=== PATIENT | male | born 1955 | race Caucasian/White ===

== ENCOUNTER → 2019-11-18 | Outpatient (CLI) | payer BC | END | disposition home or self-care (01) | LOC: LABWHC1 14:10 | PROVIDERS: ATTEND Urology | DX: R97.20 Elevated prostate specific antigen [PSA] (principal) | CPT/HCPCS: 36415; 84153 ==

== ENCOUNTER → 2020-05-18 | Outpatient (CLI) | payer BC | END | disposition home or self-care (01) | LOC: LABWHC1 12:53 | PROVIDERS: ATTEND Urology | DX: R97.20 Elevated prostate specific antigen [PSA] (principal) | CPT/HCPCS: 36415; 84153 ==

== ENCOUNTER → 2021-05-30 | Outpatient (CLI) | payer MEDICARE | END | disposition home or self-care (01) | LOC: LABWHC1 12:31 | PROVIDERS: ATTEND Urology | DX: R97.20 Elevated prostate specific antigen [PSA] (principal) | CPT/HCPCS: 36415; 84153 ==

== ENCOUNTER → 2021-12-06 | Outpatient (CLI) | payer MEDICARE ==
--- NOTE | 2021-12-06 15:11 | US ---
EXAMINATION TYPE: US thyroid st tissue head/neck DATE OF EXAM: 12/06/2021 COMPARISON: NONE CLINICAL HISTORY: E04.1 THYROID NODULE. Left thyroidectomy GLAND SIZE: Right Lobe: 5.7 x 1.6 x 1.9 cm Overall Parenchyma: heterogenous Isthmus Thickness: 0.3 cm NODULES RIGHT: # of nodules measured on right: 0 LEFT: surgically absent ISTHMUS: # of nodules measured in the isthmus: 0 Bilateral neck scanned, no evidence of lymphadenopathy. IMPRESSION: 1. No suspicious abnormality thyroid ultrasound. 2. No recurrent masses posterior right thyroid lobectomy
== END | disposition home or self-care (01) ==
LOC: RADUSWWP 14:41
PROVIDERS: ATTEND Otolaryngology
DX: E04.1 Nontoxic single thyroid nodule (principal)
CPT/HCPCS: 76536

== ENCOUNTER → 2023-06-14 | Outpatient (CLI) | payer MEDICARE ==
--- NOTE | 2023-06-15 21:31 | CT ---
EXAMINATION TYPE: CT abdomen pelvis wo con DATE OF EXAM: 06/14/2023 COMPARISON: INDICATION: calculus of kidney DLP: 1219 mGycm, Automated exposure control for dose reduction was used. CONTRAST: mL of . Study performed without Oral Contrast TECHNIQUE: Axial images were obtained from above the diaphragm to the pubic rami in the axial plane a t 5 mm thick sections. Reconstructed images are reviewed on the computer in the coronal plane. FINDINGS: Limited CT sections are obtained the lung bases. The lung bases are clear. CT ABDOMEN: Liver: Normal Spleen: Normal Pancreas: Normal Adrenal glands: The adrenal glands are normal. Gallbladder: Normal Kidneys: No masses are evident. No hydronephrosis is present. No cysts are present. There is a rim calcification measuring 1.7 cm on the lateral left mid kidney. There is a 0.6 cm nonobstructing soraida l stone at the right kidney. There is ar nonobstructing 0.7 cm calcification at the right ureteropelv ic junction. No hydronephrosis or hydroureter is evident. A nonobstructing punctate calcification makayla suring 0.4 cm is in the proximal left ureter. Series 3 image 73. Aorta: Vascular calcification is within the aorta. Inferior vena cava: Normal. CT PELVIS: Loops of bowel within the abdomen and pelvis are normal. Diverticulosis without acute diverticulitis is present predominantly within the sigmoid colon. There are loops of bowel which are incompletely distended or lack oral contrast limiting their evaluation. Appendix: Not identified. No dilated tubular structure or inflammatory changes of. Urinary bladder: Normal. Genitourinary structures: Prostate is prominent. Osseous structures: No suspicious lytic or sclerotic lesions. IMPRESSION: 1. Obstructing proximal ureteral stones bilaterally. No hydronephrosis or hydroureter is evident. 2. Nonobstructing right renal stone. 3. Rim calcification within the cortex of left kidney. Follow-up recommended.
== END | disposition home or self-care (01) ==
LOC: RADCTMAIN 10:43
PROVIDERS: ATTEND Urology
DX: N20.2 Calculus of kidney with calculus of ureter (principal); N28.89 Other specified disorders of kidney and ureter
CPT/HCPCS: 74176

== ENCOUNTER → 2023-06-24 | Outpatient (CLI) | payer MEDICARE | END | disposition home or self-care (01) | LOC: LABPAT 08:33 | PROVIDERS: ATTEND Urology | DX: Z01.812 Encounter for preprocedural laboratory examination (principal); N20.1 Calculus of ureter | CPT/HCPCS: 82365 ==

== ENCOUNTER 2023-08-23 21:45 | Emergency (ER) | payer MEDICARE ==
--- NOTE | 2023-08-23 22:20 | ED ---
Abdominal Pain HPI - General Chief Complaint: Abdominal Pain Stated Complaint: Abd pain Time Seen by Provider: 08/23/23 22:05 Source: patient, RN notes reviewed Mode of arrival: wheelchair Limitations: no limitations - History of Present Illness Initial Comments: 68-year-old male presenting with abdominal pain x 2 hours. Patient reports he was at home watching TV when he suddenly began to experience a pain in the lower abdomen, radiating around to the bilateral flanks. He states he went out to eat at a restaurant prior to this. Denies other symptoms such as nausea, vomiting, fever, diarrhea, constipation, urinary symptoms. He has never had this pain before. He does have a history of kidney stones but reports this feels different. He has a history of an appendectomy and umbilical hernia repair. Last bowel movement was today and was normal. Denies testicular pain or swelling. - Related Data Previous Rx's Medication Instructions Recorded Ketorolac [Toradol] 10 mg PO Q8HR #15 tab 08/24/23 Allergies Allergy/AdvReac Type Severity Reaction Status Date / Time No Known Allergies Allergy Verified 08/23/23 21:50 Review of Systems ROS Statement: Those systems with pertinent positive or pertinent negative responses have been documented in the HPI. ROS Other: All systems not noted in ROS Statement are negative. Past Medical History Past Medical History: Diabetes Mellitus, Hypertension, Thyroid Disorder Additional Past Medical History / Comment(s): chronic back pain History of Any Multi-Drug Resistant Organisms: None Reported Past Surgical History: Appendectomy, Hernia Repair Additional Past Surgical History / Comment(s): thyroidectomy Past Psychological History: No Psychological Hx Reported Smoking Status: Never smoker Past Alcohol Use History: Occasional Past Drug Use History: None Reported General Exam Limitations: no limitations General appearance: alert, in no apparent distress Head exam: Present: atraumatic, normocephalic, normal inspection Eye exam: Present: normal appearance, PERRL, EOMI. Absent: scleral icterus, conjunctival injection, periorbital swelling ENT exam: Present: normal exam, mucous membranes moist Respiratory exam: Present: normal lung sounds bilaterally. Absent: respiratory distress, wheezes, rales, rhonchi, stridor Cardiovascular Exam: Present: regular rate, normal rhythm, normal heart sounds. Absent: systolic murmur, diastolic murmur, rubs, gallop, clicks GI/Abdominal exam: Present: soft, normal bowel sounds. Absent: distended, tenderness, guarding, rebound, rigid Extremities exam: Present: normal inspection, full ROM, normal capillary refill. Absent: tenderness, pedal edema, joint swelling, calf tenderness Back exam: Present: normal inspection. Absent: CVA tenderness (R), CVA tenderness (L) Neurological exam: Present: alert, oriented X3 Psychiatric exam: Present: normal affect, normal mood Skin exam: Present: warm, dry, intact, normal color. Absent: rash Course Vital Signs 08/23/23 08/24/23 21:46 00:37 Temperature 97.3 F L Pulse Rate 76 74 Respiratory 20 16 Rate Blood Pressure 150/89 139/89 O2 Sat by Pulse 90 L 94 L Oximetry Medical Decision Making - Medical Decision Making Was pt. sent in by a medical professional or institution (EBONY Noe, MOLD MAINTENANCE TECHNICIAN, urgent care, hospital, or fdc...) When possible be specific @ -[No] Did you speak to anyone other than the patient for history (EMS, parent, family, police, friend...)? What history was obtained from this source @ -Patient's supplemented history Did you review nursing and triage notes (agree or disagree)? Why? @ -[I reviewed and agree with nursing and triage notes] Were old charts reviewed (outside hosp., previous admission, EMS record, old EKG, old radiological studies, urgent care reports/EKG's, fdc records)? Report findings @ -[No old charts were reviewed] Differential Diagnosis (chest pain, altered mental status, abdominal pain women, abdominal pain men, vaginal bleeding, weakness, fever, dyspnea, syncope, headache, dizziness, GI bleed, back pain, seizure, CVA, palpatations, mental health, musculoskeletal)? @ -Differential Abdominal Pain Men: Appendicitis, cholecystitis, diverticulosis, ischemic bowel, pancreatitis, hepatitis, UTI, gastroenteritis, AAA, incarcerated hernia, bowel obstruction, constipation, inflammatory bowel, hepatitis, peptic ulcer disease, splenic infarction, perforated viscus, testicular torsion, this is not meant to be an all-inclusive list EKG interpreted by me (3pts min.). @ -None X-rays interpreted by me (1pt min.). @ -[None done] CT interpreted by me (1pt min.). @ -CT revealed 9 mm obstructing stone in proximal half of right ureter about 9 cm from renal pelvis causing moderate hydroureter, hydronephrosis, and perinephric stranding, 2 adjacent stones at right pelvic ureteral junction, up t o 8 mm, 17 mm exophytic cystic lesion with thick rim calcification lateral left kidney, Bosniak type II, unchanged U/S interpreted by me (1pt. min.). @ -[None done] What testing was considered but not performed or refused? (CT, X-rays, U/S, labs)? Why? @ -[None] What meds were considered but not given or refused? Why? @ -[None] Did you discuss the management of the patient with other professionals (professionals i.e. , PA, MOLD MAINTENANCE TECHNICIAN, lab, RT, psych nurse, addiction social worker, dental amalgam processor, teacher, radiological defense officer, manager case management)? Give summary @ -I spoke with Dr. Luna who is the on-call urologist regarding this case, and he recommends patient is discharged with outpatient follow-up in office on Saturday as patient is afebrile and pain is controlled. Was smoking cessation discussed for >3mins.? @ -[No] Was critical care preformed (if so, how long)? @ -[No] Were there social determinants of health that impacted care today? How? (Homelessness, low income, unemployed, alcoholism, drug addiction, transportat ion, low edu. Level, literacy, decrease access to med. care, retirement, rehab)? @ -[No] Was there de-escalation of care discussed even if they declined (Discuss DNR or withdrawal of care, Hospice)? DNR status @ -[No] What co-morbidities impacted this encounter? (DM, HTN, Smoking, COPD, CAD, Cancer, CVA, ARF, Chemo, Hep., AIDS, mental health diagnosis, sleep apnea, morbid obesity)? @ -[None] Was patient admitted / discharged? Hospital course, mention meds given and route, prescriptions, significant lab abnormalities, going to OR and other pertinent info. @ -Patient was seen and evaluated for sudden onset abdominal pain prior to arrival. Patient has history of kidney stones. Vital signs are unremarkable. Patient is nontender to palpation of abdomen. Patient is given IV fluids and Toradol. Labs including CBC, CMP, lipase, lactic acid are remarkable for lactic of 2.5. White blood cell count is within normal limits. Urine reveals large blood, 2+ glucose, 1+ protein. CT revealed 9 mm obstructing stone in proximal half of right ureter about 9 cm from renal pelvis causing moderate hydroureter, hydronephrosis, and perinephric stranding with 2 adjacent stones at right pelvic ureteral junction, up to 8 mm. Upon reevaluation, patient states pain is well- controlled. I spoke with Dr. Luna who is the on-call urologist regarding this case, and he recommends patient is discharged with outpatient follow-up in office on Saturday, as patient is afebrile and pain is controlled. Patient and are agreeable to plan. Patient is currently already on Flomax for prostate hypertrophy, advised to continue this. Prescribed Toradol p.o. to pharmacy. Instructed to follow-up with urology on Saturday. Supportive care discussed. Strict return parameters discussed and patient shows understanding and agrees to plan. Case discussed with my attending Dr. Riley. Patient discharged in stable condition. Undiagnosed new problem with uncertain prognosis? @ -[No] Drug Therapy requiring intensive monitoring for toxicity (Heparin, Nitro, Insulin, Cardizem)? @ -[No] Were any procedures done? @ -[No] Diagnosis/symptom? @ -Right nephrolithiasis Acute, or Chronic, or Acute on Chronic? @ -Acute Uncomplicated (without systemic symptoms) or Complicated (systemic symptoms)? @ -Uncomplicated Side effects of treatment? @ -[No] Exacerbation, Progression, or Severe Exacerbation? @ -[No] Poses a threat to life or bodily function? How? (Chest pain, [place], [place], pneumonia, PE, COPD, DKA, ARF, appy, cholecystitis, CVA, Diverticulitis, Homicidal, Suicidal, threat to staff... and all critical care pts) @ -Unlikely - Lab Data Result diagrams: 08/23/23 22:04 08/23/23 22:04 Lab Results 08/23/23 08/23/23 08/23/23 Range/Units 22:04 22:04 22:04 WBC 10.3 (3.8-10.6) k/uL RBC 4.78 (4.30-5.90) m/uL Hgb 14.2 (13.0-17.5) gm/dL Hct 43.4 (39.0-53.0) % MCV 90.8 (80.0-100.0) fL MCH 29.6 (25.0-35.0) pg MCHC 32.6 (31.0-37.0) g/dL RDW 13.7 (11.5-15.5) % Plt Count 190 (150-450) k/uL MPV 8.5 Neutrophils % 73 % Lymphocytes % 17 % Monocytes % 7 % Eosinophils % 1 % Basophils % 0 % Neutrophils # 7.5 (1.3-7.7) k/uL Lymphocytes # 1.8 (1.0-4.8) k/uL Monocytes # 0.8 (0-1.0) k/uL Eosinophils # 0.1 (0-0.7) k/uL Basophils # 0.0 (0-0.2) k/uL Sodium 135 L (137-145) mmol/L Potassium 3.6 (3.5-5.1) mmol/L Chloride 100 (98-107) mmol/L Carbon Dioxide 24 (22-30) mmol/L Anion Gap 11 mmol/L BUN 32 H (9-20) mg/dL Creatinine 1.31 H (0.66-1.25) mg/dL Est GFR (CKD-EPI)AfAm 65 (>60 ml/min/1.73 sqM) Est GFR (CKD-EPI)NonAf 56 (>60 ml/min/1.73 sqM) Glucose 202 H (74-99) mg/dL Lactic Ac Sepsis Rflx Plasma Lactic Acid Yrn 2.5 H* (0.7-2.0) mmol/L Calcium 9.7 (8.4-10.2) mg/dL Total Bilirubin 0.4 (0.2-1.3) mg/dL AST 33 (17-59) U/L ALT 26 (4-49) U/L Alkaline Phosphatase 48 (38-126) U/L Total Protein 6.7 (6.3-8.2) g/dL Albumin 4.3 (3.5-5.0) g/dL Lipase 193 (23-300) U/L Urine Color Urine Appearance (Clear) Urine pH (5.0-8.0) Ur Specific [place] (1.001-1.035) Urine Protein (Negative) Urine Glucose (UA) (Negative) Urine Ketones (Negative) Urine Blood (Negative) Urine Nitrite (Negative) Urine Bilirubin (Negative) Urine Urobilinogen (<2.0) mg/dL Ur Leukocyte Esterase (Negative) Urine RBC (0-5) /hpf Urine WBC (0-5) /hpf Urine Bacteria (None) /hpf Urine Mucus (None) /hpf Urine Yeast (Budding) (None) /hpf 08/23/23 08/23/23 Range/Units 22:36 23:43 WBC (3.8-10.6) k/uL RBC (4.30-5.90) m/uL Hgb (13.0-17.5) gm/dL Hct (39.0-53.0) % MCV (80.0-100.0) fL MCH (25.0-35.0) pg MCHC (31.0-37.0) g/dL RDW (11.5-15.5) % Plt Count (150-450) k/uL MPV Neutrophils % % Lymphocytes % % Monocytes % % Eosinophils % % Basophils % % Neutrophils # (1.3-7.7) k/uL Lymphocytes # (1.0-4.8) k/uL Monocytes # (0-1.0) k/uL Eosinophils # (0-0.7) k/uL Basophils # (0-0.2) k/uL Sodium (137-145) mmol/L Potassium (3.5-5.1) mmol/L Chloride (98-107) mmol/L Carbon Dioxide (22-30) mmol/L Anion Gap mmol/L BUN (9-20) mg/dL Creatinine (0.66-1.25) mg/dL Est GFR (CKD-EPI)AfAm (>60 ml/min/1.73 sqM) Est GFR (CKD-EPI)NonAf (>60 ml/min/1.73 sqM) Glucose (74-99) mg/dL Lactic Ac Sepsis Rflx Y Plasma Lactic Acid Yrn (0.7-2.0) mmol/L Calcium (8.4-10.2) mg/dL Total Bilirubin (0.2-1.3) mg/dL AST (17-59) U/L ALT (4-49) U/L Alkaline Phosphatase (38-126) U/L Total Protein (6.3-8.2) g/dL Albumin (3.5-5.0) g/dL Lipase (23-300) U/L Urine Color Yellow Urine Appearance Cloudy (Clear) Urine pH 5.5 (5.0-8.0) Ur Specific [place] 1.022 (1.001-1.035) Urine Protein 1+ H (Negative) Urine Glucose (UA) 2+ H (Negative) Urine Ketones Negative (Negative) Urine Blood Large H (Negative) Urine Nitrite Negative (Negative) Urine Bilirubin Negative (Negative) Urine Urobilinogen <2.0 (<2.0) mg/dL Ur Leukocyte Esterase Negative (Negative) Urine RBC 174 H (0-5) /hpf Urine WBC 4 (0-5) /hpf Urine Bacteria Rare H (None) /hpf Urine Mucus Rare H (None) /hpf Urine Yeast (Budding) Occasional H (None) /hpf Disposition Clinical Impression: Right nephrolithiasis Disposition: HOME SELF-CARE Condition: Stable Instructions (If sedation given, give patient instructions): Kidney Stones (ED) Additional Instructions: Please follow-up with urology on Saturday. Take Toradol as needed for pain. Continue Flomax. Please return to the Emergency Department if symptoms worsen or any other concerns. Prescriptions: Ketorolac [Toradol] 10 mg PO Q8HR #15 tab Is patient prescribed a controlled substance at d/c from ED?: No Referrals: Norberto Cassidy MD [Primary Care Provider] - 1-2 days Kieran Luna MD [STAFF PHYSICIAN] - 1-2 days Time of Disposition: 01:52
[2023-08-23] MEDS: SODIUM CHLORIDE 0.9% 1,000 ML IV STA (22:27)
[2023-08-23] MEDS: KETOROLAC 15 MG/ML 1 ML VIAL IVP STA (22:27)
[2023-08-23 22:53] LABS: Basophils % (A) 0 %; Eosinophils # (A) 0.1 k/uL (0-0.7); Eosinophils % (A) 1 %; HCT 43.4 % (39.0-53.0); HGB 14.2 gm/dL (13.0-17.5); Lymphocytes # (A) 1.8 k/uL (1.0-4.8); Lymphocytes % (A) 17 %; MCH 29.6 pg (25.0-35.0); MCHC 32.6 g/dL (31.0-37.0); MCV 90.8 fL (80.0-100.0); Mean Platelet Volume 8.5; Monocytes # (A) 0.8 k/uL (0-1.0); Monocytes % (A) 7 %; Neutrophils # (A) 7.5 k/uL (1.3-7.7); Neutrophils % (A) 73 %; Platelet Count 190 k/uL (150-450); RBC 4.78 m/uL (4.30-5.90); RDW 13.7 % (11.5-15.5); WBC 10.3 k/uL (3.8-10.6)
[2023-08-23 22:59] LABS: Appearance,Urine Cloudy (Clear); Bacteria,Urine Rare /hpf; Bilirubin,Urine Negative (Negative); Blood,Urine Large (Negative); Budding Yeast,Urine Occasional /hpf; Color,Urine Yellow; Glucose,Urine (UA) 2+ (Negative); Ketones,Urine Negative (Negative); Leukocyte Esterase,Urine Negative (Negative); Mucus,Urine Rare /hpf; Nitrite,Urine Negative (Negative); PH, Urine 5.5 (5.0-8.0); Protein,Urine 1+ (Negative); RBC,Urine 174 /hpf (0-5); Specific Gravity,Urine 1.022 (1.001-1.035); Urobilinogen,Urine <2.0 mg/dL (<2.0); WBC,Urine 4 /hpf (0-5)
[2023-08-23 23:06] LABS: ALT 26 U/L (4-49); AST 33 U/L (17-59); African American GFR (CKD) 65 (>60 ml/min/1.73 sqM); Albumin 4.3 g/dL (3.5-5.0); Alkaline Phosphatase 48 U/L (38-126); Anion Gap 11 mmol/L; Blood Urea Nitrogen 32 mg/dL (9-20); Calcium 9.7 mg/dL (8.4-10.2); Carbon Dioxide 24 mmol/L (22-30); Chloride 100 mmol/L (98-107); Glucose 202 mg/dL (74-99); Lipase 193 U/L (23-300); Non-African American GFR(CKD) 56 (>60 ml/min/1.73 sqM); Potassium 3.6 mmol/L (3.5-5.1); Sodium 135 mmol/L (137-145); Total Bilirubin 0.4 mg/dL (0.2-1.3); Total Protein 6.7 g/dL (6.3-8.2)
[2023-08-24] MEDS: SODIUM CHLORIDE 0.9% 1,000 ML IV STA (00:36)
[2023-08-24 00:39] VITALS: RESP 16
--- NOTE | 2023-08-24 00:54 | CT ---
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 CTDI is 26.9 mGy and DLP is 1469.1 mGy-cm. This CT exam was performed using one or more of the following dose reduction techniques: automated exposure control, adjustment of the mA and/or kV according to patient size, and/or use of iterative reconstruction technique. Coronal and sagittal reformatted images were created and reviewed. 498 images COMPARISON: 06-14-23 FINDINGS: Lung bases: Unremarkable. No mass. No consolidation. ABDOMEN: Liver: Unremarkable. No mass. Gallbladder and bile ducts: Unremarkable. No calcified stones. No ductal dilation. Pancreas: Unremarkable. No mass. No ductal dilation. Spleen: Unremarkable. No splenomegaly. Adrenals: Unremarkable. No mass. Kidneys and ureters: 9 mm obstructing stone in proximal half of the right ureter about 9 cm from the renal pelvis causes moderate hydroureter, hydronephrosis and perinephric stranding. 2 adjacent stones at the right pelvic ureteral junction, measuring up to 8 mm. 17 mm exophytic cystic lesion with thick rim calcification lateral left kidney, Bosniak type II F, unchanged. Stomach and bowel: Moderate colonic diverticulosis. No obstruction. No mucosal thickening. PELVIS: Appendix: No findings to suggest acute appendicitis. Bladder: Unremarkable. No mass. Reproductive: Unremarkable as visualized. ABDOMEN and PELVIS: Intraperitoneal space: Unremarkable. No free air. No significant fluid collection. Bones/joints: 1 cm anterolisthesis of L5 on S1 with associated bilateral pars defect of L5, unchanged. Soft tissues: Small fat-containing umbilical hernia. Vasculature: Unremarkable. No abdominal aortic aneurysm. Lymph nodes: Unremarkable. No enlarged lymph nodes. IMPRESSION: 1. 9 mm obstructing stone in proximal half of the right ureter about 9 cm from the renal pelvis causes moderate hydroureter, hydronephrosis and perinephric stranding. 2. 2 adjacent stones at the right pelvic ureteral junction, measuring up to 8 mm. 3. 17 mm exophytic cystic lesion with thick rim calcification lateral left kidney, Bosniak type II F, unchanged.
[2023-08-24 02:06] VITALS: BP 141/93; PULSE 79; TEMP 98.7
== END 2023-08-24 02:58 | disposition home or self-care (01) ==
LOC: EC 21:45
DX: N13.2 Hydronephrosis with renal and ureteral calculous obstruction (principal)
CPT/HCPCS: 36415; 80053; 83605; 83690; 85025; 81001; 74177; 99284; 96374; 96361; J1885; Q9967; 96375

== ENCOUNTER → 2023-09-03 | Outpatient (CLI) | payer MEDICARE ==
[2023-09-03 18:27] LABS: Basophils # (A) 0.05 X 10*3/uL (0.00-0.10); Basophils % (A) 0.7 %; Eosinophils % (A) 2.7 %; HCT 43.4 % (37.2-50.0); HGB 14.1 g/dL (12.0-17.0); Lymphocytes % (A) 27.4 %; MCH 29.1 pg (27.0-32.0); MCHC 32.5 g/dL (32.0-37.0); MCV 89.5 FL (80.0-97.0); Monocytes # (A) 0.75 X 10*3/uL (0.20-1.00); Monocytes % (A) 10.3 %; NRBC Per 100 WBC 0 X 10*3/uL (0.00-0.01); Neutrophils # (A) 4.28 X 10*3/uL (1.80-7.70); Neutrophils % (A) 58.5 %; Platelet Count 211 X 10*3/uL (140-440); RBC 4.85 X 10*6/uL (4.10-5.60); RDW 13.5 % (11.5-14.5); WBC 7.31 X 10*3/uL (4.50-10.00)
[2023-09-03 18:28] LABS: Appearance,Urine Clear (Clear); Bilirubin,Urine Negative (Negative); Blood,Urine Moderate (Negative); Color,Urine Yellow (Yellow); Ketones,Urine Negative (Negative); Nitrite,Urine Negative (Negative); Specific Gravity,Urine 1.017 (1.001-1.030); Urobilinogen,Urine 0.2 E.U./DL
[2023-09-03 18:43] LABS: Bacteria,Urine None Seen (None Seen)
[2023-09-03 18:48] LABS: Blood Urea Nitrogen 18.9 mg/dL (9.0-27.0); Calcium 9.6 mg/dL (8.7-10.3); Carbon Dioxide 28.6 mmol/L (21.6-31.8); Chloride 99 mmol/L (96-109); Glucose 147 mg/dL (70-110); Sodium 137 mmol/L (135-145)
== END | disposition home or self-care (01) ==
LOC: LABPAT 11:39
PROVIDERS: ATTEND Urology
DX: Z01.812 Encounter for preprocedural laboratory examination (principal); N20.1 Calculus of ureter
CPT/HCPCS: 80048; 81001; 85025; 87086

== ENCOUNTER 2023-09-11 06:00 | Day surgery (SDC) | payer MEDICARE ==
[2023-09-10 09:26] VITALS: BMI 30.4
--- NOTE | 2023-09-10 13:03 | P.GSHP ---
History of Present Illness H&P Date: 09/10/23 68 yo male with stones comes for ureteroscopic removal to two right ureteral stones, 9mm proximal ureteral stone and 6 mm rid mid ureteral stone. the risks complications and alternatives have been discussed. - Constitutional Constitutional: Denies chills, Denies fever - EENT Eyes: denies blurred vision, denies pain Ears, nose, mouth and throat: Denies headache, Denies sore throat - Cardiovascular Cardiovascular: Denies chest pain, Denies shortness of breath - Respiratory Respiratory: Denies cough, Denies 7 - Gastrointestinal Gastrointestinal: Denies abdominal pain, Denies diarrhea, Denies nausea, Denies vomiting - Genitourinary (Female) Genitourinary: Denies dysuria, Denies hematuria - Genitourinary (Male) Genitourinary: Denies dysuria, Denies hematuria - Musculoskeletal Musculoskeletal: Denies myalgias - Integumentary Integumentary: Denies pruritus, Denies rash - Neurological Neurological: Denies numbness, Denies weakness - Psychiatric Psychiatric: Denies anxiety, Denies depression - Endocrine Endocrine: Denies fatigue, Denies weight change Past Medical History Past Medical History: Diabetes Mellitus, Hyperlipidemia, Hypertension, Thyroid Disorder Additional Past Medical History / Comment(s): rt kidney stones,chronic back pain History of Any Multi-Drug Resistant Organisms: None Reported Past Surgical History: Appendectomy, Hernia Repair Additional Past Surgical History / Comment(s): partial thyroidectomy,left inguinal hernia repair Past Anesthesia/Blood Transfusion Reactions: No Reported Reaction Additional Past Anesthesia/Blood Transfusion Reaction / Comment(s): no hx blood transfusion Smoking Status: Never smoker - Past Family History Mother Family Medical History: No Reported History Medications and Allergies Home Medications Medication Instructions Recorded Confirmed Type Aspirin 81 mg PO DAILY 09/10/23 09/10/23 History Celecoxib [CeleBREX] 200 mg PO BID 09/10/23 09/10/23 History Citalopram Hydrobromide 20 mg PO QAM 09/10/23 09/10/23 History [Citalopram HBr] Losartan Potassium 100 mg PO QAM 09/10/23 09/10/23 History [place]-3/Dha/Epa/Fish Oil [Fish Oil 1 each PO DAILY 09/10/23 09/10/23 History 1,000 mg Softgel] Omeprazole [PriLOSEC] 20 mg PO AC-BRKFST 09/10/23 09/10/23 History Simvastatin [Zocor] 80 mg PO HS 09/10/23 09/10/23 History Tamsulosin HCl [Flomax] 0.4 mg PO HS 09/10/23 09/10/23 History amLODIPine [Norvasc] 5 mg PO QAM 09/10/23 09/10/23 History glipiZIDE XL [Glucotrol Xl] 5 mg PO DAILY 09/10/23 09/10/23 History hydroCHLOROthiazide 25 mg PO DAILY 09/10/23 09/10/23 History metFORMIN HCL 1,500 mg PO W/SUPPER 09/10/23 09/10/23 History Allergies Allergy/AdvReac Type Severity Reaction Status Date / Time No Known Allergies Allergy Verified 09/10/23 09:18 Surgical - Exam - General well developed, well nourished, no distress - Eyes normal ocular movement, no icteric - ENT no hearing loss, no congestion - Neck no masses, trachea midline - Respiratory normal respiratory effort, clear to auscultation - Abdomen Abdomen: soft, non tender, no guarding, no rigid, no rebound - Integumentary no rash, no abnormal pigmentation - Neurologic no disoriented, no combative - Psychiatric oriented to time, oriented to person, oriented to place, speech is normal, memory intact Results - Imaging Abdominal x-ray: report reviewed, image reviewed CT scan - abdomen: report reviewed, image reviewed CT scan - pelvis: report reviewed, image reviewed Assessment and Plan Assessment: Impression: right ureteral stones[2]. Plan: cysto right ureterscopy with laser lithotripsy.
[~2023-09-11 06:00] MED LIST: LIDOCAINE 1% (10MG/ML) FOR IV START INTRADERMA PRN
--- NOTE | 2023-09-11 06:22 | XR ---
EXAMINATION TYPE: XR KUB DATE OF EXAM: 09/11/2023 6:12 AM CLINICAL HISTORY: Kidney stones TECHNIQUE: Single supine KUB image of the abdomen is obtained obtained. COMPARISON: CT abdomen and pelvis August 23, 2023 FINDINGS: Roughly 10 mm calculus in at the level of left UPJ is redemonstrated. Suspected additional 9 mm calculus at right L5 level redemonstrated less well seen on plain films versus CT. Persistent 2. 3 cm calcified cyst in the left kidney is noted. Overall nonobstructive bowel gas pattern. Visualized osseous structures are intact. IMPRESSION: As above.
[2023-09-11 06:58] LABS: Glucose,Whole Blood 157 mg/dL (70-110)
[2023-09-11] MEDS: LACTATED RINGERS 1,000 ML IV SCH (06:58)
[2023-09-11] MEDS: IV FLUID CONTINUATION 1,000 ML IV ONE ×2 (06:59→07:22)
[2023-09-11] MEDS ORDERED: HYDROmorphone 0.5 MG/0.5 ML SYRINGE IVP PRN (07:00)
[2023-09-11] MEDS: ONDANSETRON 4 MG/2 ML VIAL IVP ONE (07:04)
[2023-09-11] MEDS: DEXAMETHASONE SOD PHOSPHATE 4 MG/ML 1 ML VIAL IVP STA (07:07)
[2023-09-11] MEDS ORDERED: KETOROLAC 15 MG/ML 1 ML VIAL ONE (07:20)
[2023-09-11] MEDS ORDERED: MIDAZOLAM 2 MG/2 ML VIAL ONE (07:20)
[2023-09-11] MEDS ORDERED: PROPOFOL 10 MG/ML 20 ML VIAL IV ONE (07:20)
[2023-09-11] MEDS ORDERED: LIDOCAINE 1% INJ 10MG/ML (20 ML MDV) ONE (07:20)
[2023-09-11] MEDS ORDERED: NEOSTIGMINE 1 MG/ML 10 ML VIAL ONE (07:20)
[2023-09-11] MEDS ORDERED: ROCURONIUM 10 MG/ML (5 ML VIAL) IV ONE (07:20)
[2023-09-11] MEDS ORDERED: GLYCOPYRROLATE 0.2 MG/ML 2 ML VIAL ONE (07:20)
[2023-09-11] MEDS ORDERED: ePHEDrine 50 MG/ML 1 ML VIAL ONE (07:20)
[2023-09-11] MEDS ORDERED: fentaNYL (PF) 50 MCG/ML 2 ML AMP ONE (07:20)
[2023-09-11] MEDS ORDERED: SUCCINYLCHOLINE CHLORIDE 200 MG/10 ML VIAL IV ONE (07:20)
[2023-09-11] MEDS: IOPAMIDOL-370 100ML BTL MISCELLANE ONE (07:59)
--- NOTE | 2023-09-11 08:49 | P.OP ---
Date of Procedure: 09/11/23 Preoperative Diagnosis: right ureteral calculi Postoperative Diagnosis: same Procedure(s) Performed: cystoscopy, right ureteroscopy with laser lithotripsy, placement of 6 x 26 double-J catheter Anesthesia: ASHLEY Surgeon: Bob Reynoso Estimated Blood Loss (ml): 10 Pathology: none sent Condition: stable Disposition: PACU Indications for Procedure: the patient is 68. He has a 9 mm midureteral stone and a 9 mm proximal ureteral stone on the right side causing obstruction and discomfort. He comes for right ureteroscopy and laser lithotripsy. Risks and complications alternatives have been discussed Description of Procedure: patient brought to the operating suite. Given a general anesthetic. Placed lithotomy position with a sterile prep and drape. Cystoscopy Foroblique lens and 22-Ukrainian sheath identifies a normal anterior urethra. The prostatic urethra is minimally obstructing. The bladder rincon inspected and is unremarkable. The right ureteral orifice is identified and intubated with an 035 wire. Its passed up to the first stone which is quite impacted and eventually I'm able to manipulate the wire by the first stone. I cannot get it by the second stone. I passed an 86-14-Zhksla ureteral reentry sheath up the right ureter. The inner sheath is removed. I passed the flexible ureteroscope up to the stone. Very edematous and difficult to see. Fortunately I'm able to pass a wire by the second stone up into the kidney. I then elected to pass a ureteral dilating balloon dilated the ureter the level of the proximal right ureteral stone. I then reintroduced the ureteral sheath up the right ureter to the stone. The inner sheath is removed. I then pass a flexible ureteroscope to the stone. It is quite edematous. I'm able to partially break it such that the scope advanced by the stone. I go to the more proximal stone unable to break that into tiny pieces and passed up into the renal pelvis. I pulled back to the more distal stone and it again is in very edematous tissue and difficult to see but I'm able to break it down some more. Due to the edema and small amount of bleeding it is difficult to see and I'm uncertain as to whether all the stone is gone I elected terminate the procedure due to the edema and bleeding. I move the ureteroscope and pass a wire back onto the cystoscope. Over the wire then pass a 6 x 26 double-J catheter that coils in the renal pelvis and in the bladder the bladder is drained the patient is awakened and returned recovery room good condition The patient has had his obstruction relieved. Most of the stone has been removed. Stent has been placed. I will do a second look in a couple weeks after the edema has settled down and remove any remaining stone and make sure that the obstruction has cleared in the right ureter.
[2023-09-11 09:00] VITALS: TEMP 96.8
--- NOTE | 2023-09-11 09:11 | FL ---
EXAMINATION TYPE: FL guidance operating room Intraoperative/procedural fluoroscopic services were pro vided. Total fluoroscopy time is 3 minutes 5 seconds with a total of 2 submitted images to PACS. Plea se see the operative/procedural note for further details. DAP: 53.353 Gycm2
[2023-09-11 09:20] VITALS: RESP 16
[2023-09-11 09:24] LABS: Glucose,Whole Blood 169 mg/dL (70-110)
[2023-09-11 09:46] VITALS: PULSE 75
[2023-09-11 10:02] VITALS: BP 119/74
== END 2023-09-11 10:47 | disposition home or self-care (01) ==
LOC: OR 06:00
PROVIDERS: ATTEND Urology
DX: N20.2 Calculus of kidney with calculus of ureter (principal); E11.9 Type 2 diabetes mellitus without complications; E78.5 Hyperlipidemia, unspecified; I10 Essential (primary) hypertension; K21.9 Gastro-esophageal reflux disease without esophagitis; M43.16 Spondylolisthesis, lumbar region; Z87.442 Personal history of urinary calculi; Z98.890 Other specified postprocedural states; Z90.49 Acquired absence of other specified parts of digestive tract; Z79.82 Long term (current) use of aspirin; Z79.84 Long term (current) use of oral hypoglycemic drugs; Z79.899 Other long term (current) drug therapy
CPT/HCPCS: 74018; 52356; C2625; C1769; C1758; J2250; J0330; J1100; J2710; J0690; J2405; J2001; J3010; J1885; J2704; Q9967; J1596

== ENCOUNTER 2023-09-27 06:30 | Day surgery (SDC) | payer MEDICARE ==
--- NOTE | 2023-10-28 13:17 | XR ---
Patient: Gardner Mark Ordering Physician: Unknown, Unknown ID: [id number] Phone, Pager: Phone : N/A Pager: N/A : [phone] Age/Gender: 68Y, M Primary Location: N/A Procedure: XR KUB Study Date : 09/27/2023 6:25:00 AM EXAMINATION TYPE: XR KUB DATE OF EXAM: 10/06/2023 12:46 PM CLINICAL INDICATION: Preoperative calculi COMPARISON: None. TECHNIQUE: One radiographic view of the abdomen was obtained. FINDINGS: The bowel gas pattern is nonspecific without dilated loops of small or large bowel. . Fecal material and gas are demonstrated throughout the colon and rectum. There is no evidence for organomegaly or pneumoperitoneum. The osseous structures are intact. Right ureteral stent with superior and inferior pigtails in appropriate position. Calculus in the mid uret er thought to be present measuring 6 mm and possibly in the renal sinus measuring 7 mm. IMPRESSION: 1. Right ureteral stent with calcification along the mid ureter and possibly near the renal pelvis. 2. Nonspecific bowel gas pattern without radiographic evidence for acute process.
--- NOTE | 2023-11-14 10:36 | FL ---
EXAMINATION TYPE: FL guidance operating room DATE OF EXAM: 10/22/2023 8:46 AM COMPARISON: Pre Operative Images if available both CT/MRI or plain film CLINICAL INDICATION: Male, 68 years old with history of RIGHT SIDE RENAL CALCULI CYSTO/LITHO IN OR; TECHNIQUE: FL guidance operating room, multiple fluoroscopic images provided for procedure. Total fluoroscopy time: 21 seconds Total submitted images to PACS: 6 DAP: [id number] mGym2 Gycm2 uGym2 cGycm2 or equivalent. FINDINGS: Multiple intraoperative fluoroscopic images were taken resulting in ureteral stent placement with sup erior pigtail in appropriate position projecting over the renal pelvis. No immediate intraoperative c omplication. Multilevel degeneration changes throughout the spine. IMPRESSION: 1. No evidence for intraoperative complication. 2. Please see the operative/procedural note for further details. [facility], , 11/14/2023 10:33 AM
== END 2023-09-27 10:49 ==
LOC: OR 06:30
PROVIDERS: ATTEND Urology
DX: N20.0 Calculus of kidney (principal)
CPT/HCPCS: 74018

== ENCOUNTER 2023-09-27 06:30 | Day surgery (SDC) | payer MEDICARE ==
[2023-09-27] MEDS ORDERED: ONDANSETRON 4 MG/2 ML VIAL ONE (06:54)
[2023-09-27] MEDS ORDERED: DEXAMETHASONE SOD PHOSPHATE 4 MG/ML 1 ML VIAL ONE (06:54)
[2023-09-27] MEDS ORDERED: fentaNYL (PF) 50 MCG/ML 2 ML AMP ONE (07:30)
[2023-09-27] MEDS ORDERED: LACTATED RINGERS 1,000 ML BAG ONE (07:30)
[2023-09-27] MEDS ORDERED: ePHEDrine 50 MG/ML 1 ML VIAL ONE (07:30)
[2023-09-27] MEDS ORDERED: PROPOFOL 10 MG/ML 20 ML VIAL IV ONE (07:30)
[2023-09-27] MEDS ORDERED: LIDOCAINE 1% INJ 10MG/ML (20 ML MDV) ONE (07:30)
[2023-09-27] MEDS ORDERED: MIDAZOLAM 2 MG/2 ML VIAL ONE (07:30)
[2023-09-27] MEDS ORDERED: PHENYLEPHRINE 10 MG/ML VIAL ONE (07:30)
[2023-09-27] MEDS ORDERED: IOPAMIDOL-370 100ML BTL ONE (07:30)
--- NOTE | 2023-10-04 15:55 | OP ---
OPERATIVE REPORT DATE OF SERVICE : DIAGNOSIS: Right ureteral and renal stones. PROCEDURE PERFORMED: Right ureteroscopy with laser lithotripsy, stone basketing, and placement of 6 x 26 stent. INDICATIONS FOR PROCEDURE: Kobe Gardner is 68. He recently had a right ureteroscopy to remove some right stone. There was a lot of edema and stone. Thus, I only completed the procedure partially. A stent was placed. He comes for hopefully the rest of the procedure. DESCRIPTION OF PROCEDURE: The patient was brought to the operative suite, given general anesthesia, placed in lithotomy position, sterile prep and drape. Cystoscopy was performed with 21-Japanese sheath and identified as a normal urethra. Prostate was mildly obstructing. The bladder wall showed some trabeculation. The right stent was identified, grasped, and pulled to the urethral meatus. An 0.035 wire was passed through the stent up into the kidney. I then removed the stent, and over these wires, passed a 12/14-Japanese reentry sheath. The inner sheath was removed. I passed the flexible ureteroscope up to the proximal ureteral stone, which was broken into tiny fragments with the 275 micron laser probe. I passed more proximally. There was a larger UPJ stone, probably close to a centimeter. This was broken into small pieces. I then passed into the kidney and identified two more renal stones, which were broken into tiny pieces. The largest pieces were stone basketed. Due to the edema and the amount of stone fragments, a stent will be replaced. I passed the wire back through the ureteroscope into the kidney. I backloaded the wire on the cystoscope. Over the wire, I then passed a 6 x 26 stent into renal pelvis and the bladder. The bladder was drained. The patient was awakened, returned to the recovery in good condition. He tolerated the procedure, will be discharged home upon recovery, and follow up in the office in 1 week for stent removal. MMODL / IJN: [id number] /
--- NOTE | 2023-10-28 09:46 | HP ---
HISTORY AND PHYSICAL DIAGNOSIS: Status post ureteroscopy and laser lithotripsy with stent placement. HISTORY OF PRESENT ILLNESS: Kobe Gardner is a 68-year-old gentleman who had a 9 mm proximal ureteral stone with obstruction. He had a very difficult ureteroscopy due to edema and impaction of the stone. I was able to break up a lot of the stone, but I was uncertain as to whether all the stone was broken. Due to the significant amount of edema due to the stone impaction, I elected to terminate the procedure without known for certain whether all the stone was removed. The double-J catheter was removed. He now comes for a 2nd look ureteroscopy and removal of any remaining stone. ALLERGIES: The patient has no allergies. MEDICATIONS: 1. Aspirin. 2. Celebrex. 3. Losartan. 4. Potassium. 5. Omeprazole. 6. Simvastatin. 7. Tamsulosin. 8. Amlodipine. 9. Glipizide. 10.Hydrochlorothiazide. 11.Metformin. MEDICAL ILLNESSES: Hypertension, diabetes, hyperlipidemia, kidney stone disease, and thyroid disorder. SURGICAL HISTORY: Appendectomy, hernia repair, partial thyroidectomy, and stone manipulation. REVIEW OF SYSTEMS: Noncontributory. PHYSICAL EXAMINATION: GENERAL: Pleasant white male, in no acute distress. VITAL SIGNS: Stable. HEENT: Clear. CHEST: Clear to auscultation. HEART: Without murmur or gallop. ABDOMEN: Soft without mass or organomegaly. : Penis, testicles unremarkable. EXTREMITIES: No edema. NEUROLOGICAL: Grossly intact. IMPRESSION: This patient has a right ureteral calculus, status post laser lithotripsy and stent placement. He comes for a 2nd look with removal of any remaining stones and stent removal. MMODL / IJN: [id number] /
== END 2023-09-27 10:49 ==
LOC: OR 06:30
PROVIDERS: ATTEND Urology
DX: N20.2 Calculus of kidney with calculus of ureter (principal); I10 Essential (primary) hypertension; E11.9 Type 2 diabetes mellitus without complications; E78.5 Hyperlipidemia, unspecified; E07.9 Disorder of thyroid, unspecified; Z90.49 Acquired absence of other specified parts of digestive tract; Z98.890 Other specified postprocedural states; Z79.82 Long term (current) use of aspirin; Z79.899 Other long term (current) drug therapy; Z79.84 Long term (current) use of oral hypoglycemic drugs
CPT/HCPCS: 74018; 52356; C2625; C1769; C1894; J2250; J1100; J2405; J2001; J3010; J2704; Q9967; J2371